=== PATIENT | female | born 2005 | race Caucasian/White ===

== ENCOUNTER 2024-05-04 04:05 | Emergency (ER) | payer SELFPAY ==
[~2024-05-04] VITALS: Ht 162.6 cm; Wt 84.4 kg
[2024-05-04 04:10] VITALS: PULSE 109; RESP 18; TEMP 98.2
[2024-05-04] MEDS ORDERED: CEPHALEXIN500 M1 PO (04:45)
[2024-05-04] MEDS ORDERED: TETANUS/DIPHTHERIA TOX ADULT 0.5 ML SYR ONE (04:55)
[2024-05-04] MEDS: TETANUS/DIPHTHERIA TOX ADULT 0.5 ML SYR IM ONE (05:01)
[2024-05-04 05:02] VITALS: BP 119/58; PULSE 81; RESP 17; TEMP 98.2; O2SAT 100
== END 2024-05-04 05:05 | disposition home or self-care (01) ==
LOC: FSED 04:29
DX: S61.210A Laceration without foreign body of right index finger without damage to nail, initial encounter (principal); Y04.0XXA Assault by unarmed brawl or fight, initial encounter; Y92.89 Other specified places as the place of occurrence of the external cause
CPT/HCPCS: 90471; 90714; 99283